=== PATIENT | female | born 1960 | race Caucasian/White ===

== ENCOUNTER 2018-04-25 12:05 | Emergency (ER) | payer OTHER, SELFPAY ==
[2018-04-25 12:22] VITALS: BP 160/96; PULSE 63; RESP 18; TEMP 99.1; O2SAT 99
--- NOTE | 2018-04-25 12:55 | C.PDOC ---
History Of Present Illness 57 y/o female brought in by daughter, presents to ER complaining of sudden onset of redness of her left eye since yesterday. Denies any trauma, pain, or change of vision. Time Seen by Provider: 04/25/18 12:26 Chief Complaint (Nursing): Eye Problem History Per: Patient History/Exam Limitations: no limitations Onset/Duration Of Symptoms: Days Current Symptoms Are (Timing): Still Present Past Medical History Reviewed: Historical Data, Nursing Documentation, Vital Signs Vital Signs: Last Vital Signs Temp 99.1 F 04/25/18 12:18 Pulse 63 04/25/18 12:18 Resp 18 04/25/18 12:18 BP 160/96 H 04/25/18 12:18 Pulse Ox 99 04/25/18 12:18 - Medical History PMH: HTN, Hypercholesterolemia Family History: States: No Known Family Hx - Social History Hx Alcohol Use: Yes Hx Substance Use: No - Immunization History Hx Tetanus Toxoid Vaccination: No Hx Influenza Vaccination: Yes Hx Pneumococcal Vaccination: No Review Of Systems Eyes: Positive for: Redness (of L eye). Negative for: Pain, Vision Change Physical Exam - Physical Exam Appears: Non-toxic, No Acute Distress Skin: Warm, Dry Head: Atraumatic, Normacephalic Eye(s): right: Normal Inspection, left: Other (positive subconjunctival hematoma to lower eye; no discharge) Ear(s): Bilateral: Normal Nose: Normal Oral Mucosa: Moist Neck: Supple Extremity: Bilateral: Atraumatic Neurological/Psych: Oriented x3, Normal Speech Gait: Steady ED Course And Treatment O2 Sat by Pulse Oximetry: 99 (RA) Pulse Ox Interpretation: Normal Medical Decision Making Medical Decision Making: Impression: Left Eye Subconjunctival hemorrhage Patient denies any change of vision, pain, or eye discharge. Disposition Counseled Patient/Family Regarding: Diagnosis, Need For Followup - Disposition Referrals: Manuel Monk MD [Staff Provider] - [facility] [Outside] Disposition: HOME/ ROUTINE Disposition Time: 12:53 Condition: STABLE Additional Instructions: FOLLOW UP WITH DR. MONK TOMORROW FOR RE-EVALUATION. IF EYE PAIN, CHANGE OF VISION, EYE DISCHARGE OR ANY CONCERNING SYMPTOMS DEVELOP RETURN TO ED. Instructions: Subconjunctival Hemorrhage Forms: [employer] (Mosotho), General Discharge Instructions - Clinical Impression Clinical Impression: Subconjunctival hemorrhage - PA / ANNUAL CAMPAIGN MANAGER / Resident Statement MD/DO has reviewed & agrees with the documentation as recorded. - Scribe Statement The provider has reviewed the documentation as recorded by the Scribe Randi Luque All medical record entries made by the Hortenciaibstacie were at my direction and personally dictated by me. I have reviewed the chart and agree that the record accurately reflects my personal performance of the history, physical exam, medical decision making, and the department course for this patient. I have also personally directed, reviewed, and agree with the discharge instructions and disposition.
== END 2018-04-25 13:09 | disposition home or self-care (01) ==
LOC: C.ER 12:05 → EDBD 12:05 → C.ER 13:09
DX: H11.32 Conjunctival hemorrhage, left eye (principal)

== ENCOUNTER 2018-08-03 10:53 | Emergency (ER) | payer OTHER ==
[2018-08-03] MEDS ORDERED: Sodium Chloride 0.9% 1,000 ML IV STA ×2 (11:52→13:45)
--- NOTE | 2018-08-03 11:53 | C.PDOC ---
History Of Present Illness 58 y/o F p/w diarrhea x 2 days. Reports 5 bowel movements per day, nonbloody. Denies fever, nausea, vomiting, abdominal pain, recent travel, camping/hiking, weakness, lightheadedness, palpitations, dyspnea. Time Seen by Provider: 08/03/18 11:35 Chief Complaint (Nursing): GI Problem Past Medical History Vital Signs: Last Vital Signs Temp 99.3 F 08/03/18 10:58 Pulse 85 08/03/18 10:58 Resp 18 08/03/18 10:58 BP 149/97 H 08/03/18 10:58 Pulse Ox 99 08/03/18 10:58 - Medical History PMH: HTN, Hypercholesterolemia Family History: States: No Known Family Hx - Social History Hx Alcohol Use: Yes Hx Substance Use: No - Immunization History Hx Tetanus Toxoid Vaccination: No Hx Influenza Vaccination: Yes Hx Pneumococcal Vaccination: No Review Of Systems Except As Marked, All Systems Reviewed And Found Negative. Constitutional: Negative for: Fever Cardiovascular: Negative for: Palpitations Physical Exam - Physical Exam Additional Physical Exam Comments: Constitutional: No acute distress. Head: Normocephalic. Atraumatic. Eyes: PERRL. ENT: dry mucous membranes Neck: Supple. Cardiovascular: Regular rate. Radial pulse 2+ bilaterally. Chest: No tenderness. Respiratory: Clear to auscultation bilaterally. GI: Soft. Nontender. Nondistended. Back: No CVA tenderness. Musculoskeletal: No tenderness or swelling of extremities. Skin: No rash. Neurologic: Alert, no focal deficit. ED Course And Treatment - Laboratory Results Result Diagrams: 08/03/18 12:03 08/03/18 12:03 O2 Sat by Pulse Oximetry: 99 Medical Decision Making Medical Decision Making: Patient in no distress. Labs unremarkable. Discharged home, f/u PMD, return to ED for worsening pain, fever, vomiting, or any other problem. Disposition - Disposition Referrals: Wanda Turner MD [Staff Provider] - Disposition: HOME/ ROUTINE Disposition Time: 13:15 Condition: STABLE Instructions: Diarrhea in Adolescents and Adults Forms: [facility] (Belarusian) - Clinical Impression Clinical Impression: Diarrhea
[2018-08-03 12:07] LABS: BASO % 0.7 % (0.0-2.0); EOS # 0.1 K/uL (0.0-0.7); EOS % 1.6 % (0.0-4.0); HEMOGLOBIN 11.8 g/dL (11.0-16.0); LYMPH # 1.2 K/uL (1.0-4.3); LYMPH % 16.3 % (20.0-40.0); MEAN CELL VOLUME 84.5 fL (81.0-99.0); MEAN CORPUSCULAR HEMOGLOBIN 27.7 pg (27.0-31.0); MEAN CORPUSCULAR HGB CONC 32.8 g/dL (33.0-37.0); MEAN PLATELET VOLUME 7.2 fL (7.2-11.7); MONO # 1.2 K/uL (0.0-0.8); MONO % 16.6 % (0.0-10.0); NEUT # 4.6 K/uL (1.8-7.0); NEUT % 64.8 % (50.0-75.0); RBC 4.26 Mil/uL (3.80-5.20); RED CELL DISTRIBUTION WIDTH 12.9 % (11.5-14.5); WHITE BLOOD COUNT 7.1 K/uL (4.8-10.8)
[2018-08-03 12:19] LABS: ALB/GLOB RATIO 1.1 (1.0-2.1); ALBUMIN 4.1 g/dL (3.5-5.0); BLOOD UREA NITROGEN 10 mg/dL (7-17); CALCIUM 8.6 mg/dl (8.6-10.4); GFR NON-AFRICAN AMERICAN > 60
[2018-08-03 12:21] LABS: ALT/SGPT 27 U/L (9-52); AST/SGOT 35 U/L (14-36)
[2018-08-03 12:54] LABS: SQUAMOUS EPITHIAL < 1 /hpf (0-5); URINE BACTERIA RARE (<OCC); URINE BILIRUBIN NEGATIVE (NEGATIVE); URINE BLOOD NEGATIVE (NEGATIVE); URINE CLARITY Clear (Clear); URINE COLOR Yellow (YELLOW); URINE GLUCOSE (UA) NORMAL (Normal); URINE LEUKOCYTE ESTERASE NEG Leu/uL (Negative); URINE PROTEIN NEGATIVE (NEGATIVE); URINE UROBILINOGEN NORMAL mg/dL (0.2-1.0)
[2018-08-03 14:04] VITALS: RESP 16
[2018-08-03 15:17] VITALS: BP 138/84; PULSE 84; TEMP 97.6; O2SAT 100
== END 2018-08-03 15:15 | disposition home or self-care (01) ==
LOC: C.ER 10:53
DX: R19.7 Diarrhea, unspecified (principal); E78.00 Pure hypercholesterolemia, unspecified; I10 Essential (primary) hypertension
CPT/HCPCS: 80053; 81001; 85025; 87086; 99284; J7030